=== PATIENT | male | born 1970 | race Caucasian/White ===

== ENCOUNTER 2023-01-06 09:00 | Day surgery (SDC) | payer BC ==
[~2023-01-06 09:00] MED LIST: Lactated Ringers 1,000 ML IV SCH; Sodium Chloride 0.9% 10 ML Syringe FLUSH PRN; Sodium Chloride 0.9% 2.5 ML Syringe FLUSH PRN; Sodium Chloride 0.9% 20 ML SDV IV PRN
[2023-01-06] MEDS ORDERED: Lidocaine 2% 5 ML SDV ONE (10:41)
[2023-01-06] MEDS ORDERED: Propofol 200 MG/20 ML SDV ONE ×2 (10:41→11:02)
[2023-01-06 12:21] VITALS: BP 131/91; PULSE 61
== END 2023-01-06 11:45 | disposition home or self-care (01) ==
LOC: MW.SDS 09:00
PROVIDERS: ATTEND Surgery
DX: Z12.11 Encounter for screening for malignant neoplasm of colon (principal); D12.3 Benign neoplasm of transverse colon; E78.00 Pure hypercholesterolemia, unspecified; I10 Essential (primary) hypertension; G47.33 Obstructive sleep apnea (adult) (pediatric); E66.9 Obesity, unspecified; Z83.719 Family history of colon polyps, unspecified; Z80.0 Family history of malignant neoplasm of digestive organs; Z79.899 Other long term (current) drug therapy; Z68.35 Body mass index [BMI] 35.0-35.9, adult
CPT/HCPCS: 45380; 45385; J2704; J7120; J3490